=== PATIENT | male | born 1955 | race Caucasian/White ===

== ENCOUNTER 2022-02-22 19:20 | Inpatient (IN) | payer MEDICARE, BC ==
[~2022-02-22] VITALS: Ht 175.3 cm; Wt 76.9 kg
[~2022-02-22 19:20] MED LIST: heparin 10,000 units/1 ML INJ ONE; papaverine 30 mg/ml 2ml inj. ONE
[2022-02-22 20:00] VITALS: BP 109/52
[2022-02-22] MEDS ORDERED: diphenhydrAMINE 25mg capsule PO PRN (20:00)
[2022-02-22] MEDS ORDERED: MESSAGE TO PHARMACY IJ ONE (20:00)
[2022-02-22] MEDS ORDERED: HYDROcodone/acetaminophen 5mg/325mg tablet PO PRN (20:00)
[2022-02-22] MEDS ORDERED: ondansetron 4mg rapidly disintigrating tab PO PRN (20:00)
[2022-02-22] MEDS ORDERED: MESSAGE TO NURSING PO ONE ×4 (20:00)
[2022-02-22] MEDS ORDERED: heparin 10,000 units/1 ML INJ IV ONE (20:15)
[2022-02-22 20:44] LABS: BASOPHILS % (AUTO) 0.8 % (0-1); EOSINOPHILS # (AUTO) 0.1 X10'3 (0-0.9); EOSINOPHILS % (AUTO) 2.9 % (0-6); HEMATOCRIT 46.6 % (42.0-52.0); HEMOGLOBIN 15.8 g/dl (14.0-17.9); LYMPHOCYTES # (AUTO) 1.1 X10'3 (1.1-4.8); LYMPHOCYTES % (AUTO) 22.3 % (21-51); MEAN CORPUSCULAR HEMOGLOBIN 30.7 PG (27.0-31.0); MEAN CORPUSCULAR HGB CONC 33.9 g/dL (33.0-36.5); MEAN CORPUSCULAR VOLUME 90.4 FL (78-98); MEAN PLATELET VOLUME 9.2 FL (7.4-10.4); MONOCYTES # (AUTO) 0.5 X10'3 (0-0.9); MONOCYTES % (AUTO) 9.9 % (2-12); NEUTROPHILS # (AUTO) 3.1 X10'3 (1.8-7.7); NEUTROPHILS % (AUTO) 64.1 % (42-75); PLATELET COUNT 162 X10'3 (140-440); RED BLOOD COUNT 5.15 X10'6 (4.70-6.10); WHITE BLOOD COUNT 4.8 X10'3 (4.5-11.0)
[2022-02-22 20:54] LABS: APTT 56 SECONDS (22-32)
[2022-02-22 20:56] LABS: ALBUMIN 3.6 G/DL (3.4-5.0); ANION GAP 7 (8-16); BLOOD UREA NITROGEN 12 MG/DL (7-18); BUN/CREATININE RATIO 16.2 (5.4-32.0); CALCIUM 8.9 MG/DL (8.5-10.1); CHLORIDE 105 MMOL/L (99-107); CREATININE 0.74 MG/DL (0.60-1.10); GLUCOSE 192 MG/DL (70-104); POTASSIUM 4.1 MMOL/L (3.5-5.1); SODIUM 140 MMOL/L (135-145); TOTAL CARBON DIOXIDE 28.1 MMOL/L (24-32); eGFR > 90 ML/MIN
[2022-02-22] MEDS: sod chloride 0.9% 10ml flush syringe IV SCH (20:56)
[2022-02-22 21:00] VITALS: BP 103/72
[2022-02-22] MEDS: atorvastatin 10mg tablet PO SCH (21:10)
[2022-02-22] MEDS: metoprolol tartrate 12.5mg (1/2 tablet) PO SCH (21:11)
[2022-02-22] MEDS: heparin 25,000 UNIT/250ml bag 250 ML IV SCH (21:20)
[2022-02-22 22:00] VITALS: BP 106/77
--- NOTE | 2022-02-22 22:00 | NUR ---
Patient in room CICU 2016. I have received report from Amber MONSIVAIS ([facility]) and had the opportunity to ask questions and assume patient care. Patient arrived via EMS as direct admit. Patient walked to bed, placed on monitor. Dr Neri at bedside to assess patient.
[2022-02-22 23:00] VITALS: BP 114/73
[2022-02-23] VITALS (14 sets, daily range): BP systolic 89–110; BP diastolic 58–76
[2022-02-23 02:48] LABS: CLARITY,URINE CLEAR (Clear); COLOR,URINE YELLOW (Yellow); GLUCOSE, URINE NEGATIVE (Neg); KETONES,URINE NEGATIVE (Neg); LEUKOCYTE ESTERASE ,URINE NEGATIVE (Neg); NITRITES, URINE NEGATIVE (Neg); OCCULT BLOOD,URINE NEGATIVE (Neg); PH,URINE 6.5 (4.8-8.0); PROTEIN,URINE NEGATIVE (Neg); UROBILINOGEN,URINE 0.2 E.U/dL (0.2-1.0)
[2022-02-23 02:55] LABS: UA COLLECTION TYPE URINAL
[2022-02-23 03:39] LABS: BASOPHILS % (AUTO) 0.7 % (0-1); EOSINOPHILS # (AUTO) 0.1 X10'3 (0-0.9); EOSINOPHILS % (AUTO) 2.9 % (0-6); HEMATOCRIT 47.1 % (42.0-52.0); LYMPHOCYTES % (AUTO) 22.3 % (21-51); MEAN CORPUSCULAR HEMOGLOBIN 30.6 PG (27.0-31.0); MEAN CORPUSCULAR HGB CONC 33.9 g/dL (33.0-36.5); MEAN CORPUSCULAR VOLUME 90.3 FL (78-98); MEAN PLATELET VOLUME 9.3 FL (7.4-10.4); MONOCYTES # (AUTO) 0.5 X10'3 (0-0.9); MONOCYTES % (AUTO) 10.8 % (2-12); NEUTROPHILS # (AUTO) 2.7 X10'3 (1.8-7.7); NEUTROPHILS % (AUTO) 63.3 % (42-75); PLATELET COUNT 142 X10'3 (140-440); RED BLOOD COUNT 5.22 X10'6 (4.70-6.10); WHITE BLOOD COUNT 4.3 X10'3 (4.5-11.0)
[2022-02-23 03:56] LABS: ALBUMIN 3.5 G/DL (3.4-5.0); ANION GAP 7 (8-16); BLOOD UREA NITROGEN 11 MG/DL (7-18); BUN/CREATININE RATIO 16.2 (5.4-32.0); CALCIUM 8.8 MG/DL (8.5-10.1); CHLORIDE 107 MMOL/L (99-107); CREATININE 0.68 MG/DL (0.60-1.10); GLUCOSE 157 MG/DL (70-104); POTASSIUM 3.9 MMOL/L (3.5-5.1); SODIUM 140 MMOL/L (135-145); TOTAL CARBON DIOXIDE 25.7 MMOL/L (24-32); eGFR > 90 ML/MIN
--- NOTE | 2022-02-23 06:31 | NUR ---
Problems reprioritized. Patient report given, questions answered & plan of care reviewed with Zak MONSIVAIS.
[2022-02-23] MEDS: metoprolol tartrate 12.5mg (1/2 tablet) PO SCH ×2 (08:00→20:42)
[2022-02-23] MEDS: sod chloride 0.9% 10ml flush syringe IV SCH ×2 (08:36→20:43)
[2022-02-23] MEDS: aspirin 81mg, enteric-coated 1 TAB TABLET.DR PO SCH (08:37)
[2022-02-23 09:49] LABS: ABG BASE EXCESS -0.4 mmol/L (-2.0-2.0); ABG HCO3 22.4 mmol/L (22.0-26.0); ABG PCO2 (T) 32.4 mmHg (35.0-48.0); ABG PO2 (T) 69.2 mmHg (75.0-100.0); ALLEN'S TEST POSITIVE; FCOHb 0.2 % (0.0-3.9); FMetHb 0.1 % (0.0-1.5); FO2Hb 94.7 % (94-97); TOTAL HEMOGLOBIN 17.1 G/dl (14.0-18.0)
[2022-02-23] MEDS ORDERED: MESSAGE TO NURSING PO ONE ×2 (10:00→13:50)
--- NOTE | 2022-02-23 10:12 | NUR ---
PT TRANSFERRED TO PCU WITH CHART, BELONGINGS, TELE ON, IVS IN STABLE CONDITION. PLACED IN BED CHART TO BUN PANNER
[2022-02-23] MEDS ORDERED: NO HOME MEDS (13:37)
[2022-02-23] MEDS ORDERED: MESSAGE TO PHARMACY IJ ONE (13:50)
[2022-02-23] MEDS ORDERED: dextrose 50%-water 50ml dispensing syringe IV PRN (13:50)
[2022-02-23] MEDS ORDERED: Insulin Reg/NS 100units/100mL 100 ML IV SCH (13:50)
[2022-02-23] MEDS ORDERED: insulin glargine (Lantus) pen - multi-dose SQ PRN (13:50)
--- NOTE | 2022-02-23 15:37 | NUR ---
DM Consult "vegan, no sweets": Pt DX CAD pending CABG this admit w/ hx pre-diabetes A1C 7.0% per EMR. ENRIQUE d/w pharmacy who reports pt has no home meds reported. Pt hx vegan currently on vegan/heart healthy diet this admit w/ Glu 128mg/dl down from 192mg/dl previously per EMR. Pt/SO seen by RD at bedside; pt/SO report they want no: added oils unless extra-virgin olive oil, no peanut butter/roasted nuts, soy milk, canned fruit/juices, or margarine at this time. Pt/SO are understanding of hospital resources and have been bringing food in from home to further meet dietary preferences; RD contact information provided. Pt reports takes B12 supplementation weekly vs bi-weekly at home. Pt reports hx pre-diabetes though does not report mention of DM this admit. Unsure if pt aware of DM onset this admit; ENRIQUE d/w RN regarding pt notification of DM per physician discretion given A1C. DM ed deferred until pt aware of DM by physician. LBM 02/22. Will monitor for further nutrition intervention needs this admit. Rec: 1. continue vegan/heart healthy diet per MD/pt preferences; food from home by SO 2. honor pt vegan food preferences; see subjective 3. MVI/B12 supplementation per MD discretion given vegan hx 4. routine bowel care 5. weekly wts 6. DM ed once pt made aware of DM DX/A1C meaning by physician prior to discharge Addendum: 02/23/22 at [address] Amended: Links added.
[2022-02-23] MEDS: heparin 10,000 units/1 ML INJ IV PRN (16:47)
[2022-02-23] MEDS: heparin 25,000 UNIT/250ml bag 250 ML IV SCH (18:14)
[2022-02-23] MEDS ORDERED: metoprolol tartrate 12.5mg (1/2 tablet) PO SCH (20:00)
[2022-02-23] MEDS ORDERED: sod chloride 0.9% 10ml flush syringe IV SCH (20:00)
[2022-02-23] MEDS: atorvastatin 10mg tablet PO SCH (20:42)
[2022-02-23] MEDS: mupirocin 2% nasal ointment 1gm UD NS SCH (20:47)
[2022-02-24] VITALS (7 sets, daily range): BP systolic 90–106; BP diastolic 55–72
[2022-02-24] MEDS ORDERED: MALTODEXTRIN/FRUCTOSE 0.68 KCAL/ML LIQUID 296ML BOTTLE PO ONE (05:00)
[2022-02-24] MEDS ORDERED: vancomycin/NS 1 GM ADD-VANTAGE 250 ML IV ONE (05:30)
[2022-02-24] MEDS ORDERED: gabapentin 400mg capsule PO ONE (05:30)
[2022-02-24] MEDS: sod chloride 0.9% 10ml flush syringe IV SCH ×2 (08:00→20:43)
[2022-02-24] MEDS: metoprolol tartrate 12.5mg (1/2 tablet) PO SCH ×2 (08:00→20:00)
--- NOTE | 2022-02-24 08:03 | NUR ---
heparin drip is running in target therapeutic range.
[2022-02-24] MEDS: mupirocin 2% nasal ointment 1gm UD NS SCH ×2 (09:46→20:43)
[2022-02-24] MEDS: aspirin 81mg, enteric-coated 1 TAB TABLET.DR PO SCH (09:47)
[2022-02-24] MEDS: heparin 10,000 units/1 ML INJ IV PRN (10:38)
[2022-02-24 16:20] LABS: BASOPHILS % (AUTO) 0.7 % (0-1); EOSINOPHILS # (AUTO) 0.1 X10'3 (0-0.9); EOSINOPHILS % (AUTO) 2.5 % (0-6); HEMATOCRIT 48.5 % (42.0-52.0); HEMOGLOBIN 16.3 g/dl (14.0-17.9); LYMPHOCYTES # (AUTO) 0.8 X10'3 (1.1-4.8); LYMPHOCYTES % (AUTO) 18.1 % (21-51); MEAN CORPUSCULAR HEMOGLOBIN 30.6 PG (27.0-31.0); MEAN CORPUSCULAR HGB CONC 33.7 g/dL (33.0-36.5); MEAN CORPUSCULAR VOLUME 90.7 FL (78-98); MEAN PLATELET VOLUME 9.6 FL (7.4-10.4); MONOCYTES # (AUTO) 0.4 X10'3 (0-0.9); MONOCYTES % (AUTO) 8.6 % (2-12); NEUTROPHILS # (AUTO) 3.1 X10'3 (1.8-7.7); NEUTROPHILS % (AUTO) 70.1 % (42-75); PLATELET COUNT 160 X10'3 (140-440); RED BLOOD COUNT 5.35 X10'6 (4.70-6.10); RED CELL DISTRIBUTION WIDTH 12.8 % (11.5-14.5); WHITE BLOOD COUNT 4.4 X10'3 (4.5-11.0)
[2022-02-24 16:25] LABS: ALBUMIN 3.4 G/DL (3.4-5.0); ANION GAP 6 (8-16); BLOOD UREA NITROGEN 12 MG/DL (7-18); BUN/CREATININE RATIO 16.9 (5.4-32.0); CALCIUM 8.6 MG/DL (8.5-10.1); CHLORIDE 107 MMOL/L (99-107); CREATININE 0.71 MG/DL (0.60-1.10); GLUCOSE 188 MG/DL (70-104); POTASSIUM 4.2 MMOL/L (3.5-5.1); SODIUM 141 MMOL/L (135-145); TOTAL CARBON DIOXIDE 28.3 MMOL/L (24-32); eGFR > 90 ML/MIN
[2022-02-24] MEDS: heparin 25,000 UNIT/250ml bag 250 ML IV SCH (18:52)
[2022-02-24] MEDS: atorvastatin 10mg tablet PO SCH (20:44)
[2022-02-25] VITALS (22 sets, daily range): BP systolic 91–130; BP diastolic 44–65
[2022-02-25] MEDS ORDERED: gabapentin 400mg capsule PO ONE (04:40)
[2022-02-25 04:47] LABS: BASOPHILS % (AUTO) 0.5 % (0-1); EOSINOPHILS # (AUTO) 0.1 X10'3 (0-0.9); EOSINOPHILS % (AUTO) 2.7 % (0-6); HEMATOCRIT 48.9 % (42.0-52.0); HEMOGLOBIN 16.2 g/dl (14.0-17.9); LYMPHOCYTES # (AUTO) 0.9 X10'3 (1.1-4.8); LYMPHOCYTES % (AUTO) 19.8 % (21-51); MEAN CORPUSCULAR HEMOGLOBIN 29.7 PG (27.0-31.0); MEAN CORPUSCULAR HGB CONC 33.2 g/dL (33.0-36.5); MEAN CORPUSCULAR VOLUME 89.6 FL (78-98); MEAN PLATELET VOLUME 9.7 FL (7.4-10.4); MONOCYTES # (AUTO) 0.4 X10'3 (0-0.9); MONOCYTES % (AUTO) 9.1 % (2-12); NEUTROPHILS # (AUTO) 3.1 X10'3 (1.8-7.7); NEUTROPHILS % (AUTO) 67.9 % (42-75); PLATELET COUNT 155 X10'3 (140-440); RED BLOOD COUNT 5.46 X10'6 (4.70-6.10); WHITE BLOOD COUNT 4.6 X10'3 (4.5-11.0)
[2022-02-25 04:49] LABS: ALBUMIN 3.6 G/DL (3.4-5.0); ANION GAP 4 (8-16); BLOOD UREA NITROGEN 11 MG/DL (7-18); BUN/CREATININE RATIO 15.3 (5.4-32.0); CALCIUM 8.8 MG/DL (8.5-10.1); CHLORIDE 107 MMOL/L (99-107); CREATININE 0.72 MG/DL (0.60-1.10); GLUCOSE 164 MG/DL (70-104); POTASSIUM 4.2 MMOL/L (3.5-5.1); SODIUM 141 MMOL/L (135-145); TOTAL CARBON DIOXIDE 29.6 MMOL/L (24-32); eGFR > 90 ML/MIN
[2022-02-25] MEDS ORDERED: vancomycin/NS 1 GM ADD-VANTAGE 250 ML IV ONE (05:30)
[2022-02-25] MEDS ORDERED: ceFAZolin 1000mg inj ONE (06:05)
[2022-02-25] MEDS ORDERED: epiNEPHrine 1 mg/ml inj ONE (06:05)
[2022-02-25] MEDS ORDERED: papaverine 30 mg/ml 2ml inj. IA ONE (07:00)
[2022-02-25] MEDS ORDERED: heparin 10,000 units/1 ML INJ IR ONE (07:00)
[2022-02-25] MEDS ORDERED: SUFENTANIL CITRATE 50 MCG/ML 2ml ampule IV ONE (07:24)
[2022-02-25] MEDS ORDERED: MIDAZolam 1 MG/ML 5ML VIAL ONE (07:26)
[2022-02-25] MEDS ORDERED: propofol inj 20 ML IV ONE (07:28)
[2022-02-25] MEDS ORDERED: rocuronium 10mg/ml inj IV ONE (07:29)
[2022-02-25] MEDS ORDERED: ePHEDrine 50MG/ML INJ. ONE (07:31)
[2022-02-25] MEDS ORDERED: midazolam 1 mg/ML 2ml injection ONE (07:59)
[2022-02-25] MEDS: mupirocin 2% nasal ointment 1gm UD NS SCH (08:00)
[2022-02-25 08:22] LABS: ABG BASE EXCESS -1.8 mmol/L (-2.0-2.0); ABG HCO3 24.7 mmol/L (22.0-26.0); ABG OXYGEN SATURATION 99.7 % (94-97); ABG PO2 430.8 mmHg (75.0-100.0); CL (ABG) 101 mmol/L (98-110); FCOHb 0.5 % (0.0-3.9); FMetHb 0.3 % (0.0-1.5); FO2Hb 98.9 % (94-97); GLUCOSE (ABG) 193 mg/dl (70-105); IONIZED CA (ABG) 1.13 mmol/L (1.10-1.43); K (ABG) 3.9 mmol/L (3.5-5.0); TOTAL HEMOGLOBIN 16.1 G/dl (14.0-18.0)
[2022-02-25] MEDS ORDERED: Insulin Reg/NS 100units/100mL 100 ML IV SCH ×2 (08:31→11:25)
[2022-02-25] MEDS ORDERED: sodium bicarbonate (8.4%) 1 mEq/ml syringe ONE (09:00)
[2022-02-25] MEDS ORDERED: albumin (human) 25% 100 ML IV solution IV ONE (09:00)
[2022-02-25] MEDS ORDERED: phenylephrine 10mg/ml inj. ONE (09:00)
[2022-02-25] MEDS ORDERED: calcium chloride 100 MG/1 ML inj IV ONE (09:00)
[2022-02-25] MEDS ORDERED: heparin 10,000 units/1 ML INJ ONE (09:00)
[2022-02-25] MEDS ORDERED: aminocaproic acid 250 MG/1 ML inj. ONE (09:00)
[2022-02-25] MEDS ORDERED: methylPREDNISolone sod succ 1000mg vial ONE (09:00)
[2022-02-25 09:39] LABS: ABG HCO3 VENOUS 26.6 mmol/L (21.0-28.0); ABG PCO2 VENOUS 46.6 mmHg (41.0-54.0); ABG PO2 VENOUS 49.5 mmHg (25.0-35.0); CL (ABG) 99 mmol/L (98-110); FCOHb VENOUS 0.3 %; FHHb VENOUS 14.7 %; FMetHb VENOUS 0.3 % (0.0 - 0.5); FO2Hb VENOUS 84.7 %; GLUCOSE (ABG) 147 mg/dl (70-105); IONIZED CA (ABG) 0.92 mmol/L (1.10-1.43); K (ABG) 3.7 mmol/L (3.5-5.0); TOTAL HEMOGLOBIN 11.7 G/dl (14.0-18.0)
[2022-02-25 09:42] LABS: ABG BASE EXCESS 0.4 mmol/L (-2.0-2.0); ABG HCO3 25.4 mmol/L (22.0-26.0); ABG OXYGEN SATURATION 99.3 % (94-97); ABG PCO2 42.3 mmHg (35.0-48.0); ABG PO2 410.7 mmHg (75.0-100.0); CL (ABG) 101 mmol/L (98-110); FCOHb 0.3 % (0.0-3.9); FMetHb 0.3 % (0.0-1.5); FO2Hb 98.7 % (94-97); GLUCOSE (ABG) 151 mg/dl (70-105); IONIZED CA (ABG) 0.98 mmol/L (1.10-1.43); K (ABG) 3.4 mmol/L (3.5-5.0); TOTAL HEMOGLOBIN 11.9 G/dl (14.0-18.0)
[2022-02-25 10:13] LABS: ABG BASE EXCESS -0.8 mmol/L (-2.0-2.0); ABG HCO3 25.3 mmol/L (22.0-26.0); ABG OXYGEN SATURATION 99.4 % (94-97); ABG PCO2 47.7 mmHg (35.0-48.0); CL (ABG) 102 mmol/L (98-110); FCOHb 0.5 % (0.0-3.9); FMetHb 0.3 % (0.0-1.5); FO2Hb 98.6 % (94-97); GLUCOSE (ABG) 163 mg/dl (70-105); IONIZED CA (ABG) 1.06 mmol/L (1.10-1.43); K (ABG) 4.1 mmol/L (3.5-5.0); TOTAL HEMOGLOBIN 13.1 G/dl (14.0-18.0)
[2022-02-25 10:33] LABS: ABG BASE EXCESS 1.9 mmol/L (-2.0-2.0); ABG HCO3 28.1 mmol/L (22.0-26.0); ABG OXYGEN SATURATION 99.1 % (94-97); ABG PCO2 51.2 mmHg (35.0-48.0); ABG PO2 266.4 mmHg (75.0-100.0); CL (ABG) 102 mmol/L (98-110); FCOHb 0.3 % (0.0-3.9); FMetHb 0.3 % (0.0-1.5); FO2Hb 98.5 % (94-97); GLUCOSE (ABG) 161 mg/dl (70-105); IONIZED CA (ABG) 1.63 mmol/L (1.10-1.43); K (ABG) 3.7 mmol/L (3.5-5.0); TOTAL HEMOGLOBIN 12.7 G/dl (14.0-18.0)
[2022-02-25 11:00] LABS: ABG BASE EXCESS VENOUS 0.6 mmol/L (-2.0 - 2.0); ABG HCO3 VENOUS 27.7 mmol/L (21.0-28.0); ABG PCO2 VENOUS 54.7 mmHg (41.0-54.0); ABG PO2 VENOUS 49.5 mmHg (25.0-35.0); CL (ABG) 103 mmol/L (98-110); FCOHb VENOUS 0.9 %; FHHb VENOUS 16.8 %; FMetHb VENOUS 0.3 % (0.0 - 0.5); GLUCOSE (ABG) 164 mg/dl (70-105); IONIZED CA (ABG) 1.24 mmol/L (1.10-1.43); K (ABG) 3.8 mmol/L (3.5-5.0); TOTAL HEMOGLOBIN 13.4 G/dl (14.0-18.0)
[2022-02-25 11:04] LABS: ACTIVATED CLOTTING TIME 238 SEC (101-148)
[2022-02-25] MEDS ORDERED: dextrose 50%-water 50ml dispensing syringe IV PRN (11:25)
[2022-02-25] MEDS ORDERED: mineral oil 133ml enema RC PRN (11:25)
[2022-02-25] MEDS ORDERED: potassium CL 10mEq/100ml bag 100 ML IV PRN (11:25)
[2022-02-25] MEDS ORDERED: Neutra Phos packet PO PRN (11:25)
[2022-02-25] MEDS ORDERED: niCARDipine-NS 40mg/200ml IVPB 200 ML IV PRN (11:25)
[2022-02-25] MEDS ORDERED: ondansetron/PF 4mg/2ml inj IV PRN (11:25)
[2022-02-25] MEDS ORDERED: sodium chloride 0.45% 1,000 ML IV SCH (11:25)
[2022-02-25] MEDS ORDERED: magnesium citrate 296ml oral solution PO PRN (11:25)
[2022-02-25] MEDS ORDERED: HYDROcodone/acetaminophen 10/325mg tab PO PRN ×2 (11:25)
[2022-02-25] MEDS ORDERED: morphine 4 MG/ML inj SYRINge IV PRN (11:25)
[2022-02-25] MEDS ORDERED: sodium phosphate inj. 15 MMOL in dextrose 5%-water 250 ML IV PRN (11:25)
[2022-02-25] MEDS ORDERED: potassium Cl 20 mEq SR tablet PO PRN (11:25)
[2022-02-25] MEDS ORDERED: sodium phosphate inj. 30 MMOL in dextrose 5%-water 250 ML IV PRN (11:25)
[2022-02-25] MEDS ORDERED: metoclopramide 5 mg/ml inj IV PRN (11:25)
[2022-02-25] MEDS ORDERED: bisacodyl 10mg suppository rectal RC PRN (11:25)
[2022-02-25] MEDS ORDERED: acetaminophen 325mg tablet PO PRN ×2 (11:25)
[2022-02-25] MEDS ORDERED: nitroGLYCERIN-Tridil 50MG/D5W 250 ML IV PRN (11:25)
[2022-02-25] MEDS ORDERED: magnesium 2GM in 50ml NS 50 ML IV PRN (11:25)
[2022-02-25] MEDS ORDERED: magnesium hydroxide 30ml (MOM) UD suspension PO PRN (11:25)
--- NOTE | 2022-02-25 11:45 | NUR ---
Received to room , accompanied by MDs and surgical crew. Placed on ventilator, to time study engineer, arterial line and PA line pressure monitored. Chest tubes to suction at 20 cm. Zhang cath to gravity drainage. Dressings are dry and intact. See assessment record. All vasoactive drugs are infusing via central line.
--- NOTE | 2022-02-25 12:00 | NUR ---
per Dr. Neri keep nitro at 10 mcg/min over night
[2022-02-25 12:18] LABS: ABG BASE EXCESS -1.3 mmol/L (-2.0-2.0); ABG HCO3 22.1 mmol/L (22.0-26.0); ABG OXYGEN SATURATION 97.7 % (94-97); ABG PCO2 (T) 32.8 mmHg (35.0-48.0); ABG PO2 (T) 103.3 mmHg (75.0-100.0); FCOHb 0.3 % (0.0-3.9); FMetHb 0.3 % (0.0-1.5); FO2Hb 97.1 % (94-97); PATIENT TEMPERATURE 36.7; PEEP 5 cm H2O; RESPIRATORY RATE 18 b/min; TIDAL VOLUME 500 mL
[2022-02-25 12:40] LABS: APTT 27 SECONDS (22-32); BASOPHILS % (AUTO) 0.1 % (0-1); EOSINOPHILS % (AUTO) 0.2 % (0-6); HEMATOCRIT 42.6 % (42.0-52.0); HEMOGLOBIN 14.4 g/dl (14.0-17.9); LYMPHOCYTES # (AUTO) 0.5 X10'3 (1.1-4.8); LYMPHOCYTES % (AUTO) 4.6 % (21-51); MEAN CORPUSCULAR HEMOGLOBIN 30.2 PG (27.0-31.0); MEAN CORPUSCULAR HGB CONC 33.8 g/dL (33.0-36.5); MEAN CORPUSCULAR VOLUME 89.2 FL (78-98); MEAN PLATELET VOLUME 9.6 FL (7.4-10.4); MONOCYTES # (AUTO) 0.4 X10'3 (0-0.9); MONOCYTES % (AUTO) 3.5 % (2-12); NEUTROPHILS % (AUTO) 91.6 % (42-75); PLATELET COUNT 122 X10'3 (140-440); RED BLOOD COUNT 4.78 X10'6 (4.70-6.10); WHITE BLOOD COUNT 10.9 X10'3 (4.5-11.0)
[2022-02-25 12:43] LABS: ALANINE AMINOTRANSFERASE 20 U/L (12-78); ALBUMIN 3.1 G/DL (3.4-5.0); ALBUMIN/GLOBULIN RATIO 1.3 (1.1-1.5); ALKALINE PHOSPHATASE 108 IU/L (46-116); ANION GAP 10 (8-16); ASPARTATE AMINO TRANSFERASE 32 U/L (10-37); BILIRUBIN,TOTAL 0.6 MG/DL (0.1-1.0); BLOOD UREA NITROGEN 9 MG/DL (7-18); BUN/CREATININE RATIO 11.7 (5.4-32.0); CALCIUM 8.3 MG/DL (8.5-10.1); CHLORIDE 108 MMOL/L (99-107); CREATININE 0.77 MG/DL (0.60-1.10); GLUCOSE 137 MG/DL (70-104); MAGNESIUM 1.7 MG/DL (1.5-2.4); PHOSPHORUS 2.1 MG/DL (2.3-4.5); POTASSIUM 3.3 MMOL/L (3.5-5.1); SODIUM 143 MMOL/L (135-145); TOTAL CARBON DIOXIDE 25.3 MMOL/L (24-32); TOTAL PROTEIN 5.5 G/DL (6.4-8.2); eGFR > 90 ML/MIN
[2022-02-25] MEDS: gabapentin 300mg capsule PO SCH ×2 (13:11→21:03)
[2022-02-25] MEDS: magnesium 4gm in 100ml NS 100 ML IV PRN (13:17)
[2022-02-25] MEDS: potassium Cl 20mEq/100mL bag 100 ML IV PRN ×6 (13:19→20:13)
[2022-02-25] MEDS: albumin (Human) 5% 250ml 250 ML IV PRN ×2 (13:28→13:43)
[2022-02-25] MEDS: morphine 2 MG/ML inj. syringe IV PRN ×3 (13:30→23:03)
[2022-02-25] MEDS: ceFAZolin/D5W- 1GM premix 50 ML IV SCH (15:41)
[2022-02-25 15:58] LABS: ABG BASE EXCESS -2.9 mmol/L (-2.0-2.0); ABG HCO3 20.5 mmol/L (22.0-26.0); ABG OXYGEN SATURATION 96.2 % (94-97); ABG PCO2 (T) 31.3 mmHg (35.0-48.0); ABG PO2 (T) 81.2 mmHg (75.0-100.0); FCOHb 0.1 % (0.0-3.9); FMetHb 0.1 % (0.0-1.5); PATIENT TEMPERATURE 36.5; PEEP 5 cm H2O; TOTAL HEMOGLOBIN 13.3 G/dl (14.0-18.0)
--- NOTE | 2022-02-25 16:12 | NUR ---
Ph 7.42 co2 32.0 pos 83.9 hco3 20.5, niff -20, rsbi 16 vc 1081 positive cuff leak patient meets criteria for extubation, patient extubated 1605, placed on 3 L nasal canula
[2022-02-25] MEDS ORDERED: amiodarone/D5 360MG/200ML BAG 200 ML IV SCH ×2 (17:05→20:21)
[2022-02-25 18:04] LABS: HEMOGLOBIN 12.4 g/dl (14.0-17.9)
[2022-02-25 18:05] LABS: BASOPHILS % (AUTO) 0.3 % (0-1); EOSINOPHILS % (AUTO) 0.1 % (0-6); HEMATOCRIT 37.2 % (42.0-52.0); LYMPHOCYTES # (AUTO) 0.3 X10'3 (1.1-4.8); LYMPHOCYTES % (AUTO) 2.2 % (21-51); MEAN CORPUSCULAR HEMOGLOBIN 29.7 PG (27.0-31.0); MEAN CORPUSCULAR HGB CONC 33.2 g/dL (33.0-36.5); MEAN CORPUSCULAR VOLUME 89.5 FL (78-98); MEAN PLATELET VOLUME 9.8 FL (7.4-10.4); MONOCYTES # (AUTO) 0.4 X10'3 (0-0.9); MONOCYTES % (AUTO) 3.6 % (2-12); NEUTROPHILS # (AUTO) 11.8 X10'3 (1.8-7.7); NEUTROPHILS % (AUTO) 93.8 % (42-75); PLATELET COUNT 121 X10'3 (140-440); RED BLOOD COUNT 4.16 X10'6 (4.70-6.10); WHITE BLOOD COUNT 12.6 X10'3 (4.5-11.0)
[2022-02-25 18:08] LABS: ALBUMIN 3.2 G/DL (3.4-5.0); ANION GAP 11 (8-16); BLOOD UREA NITROGEN 9 MG/DL (7-18); BUN/CREATININE RATIO 11.4 (5.4-32.0); CALCIUM 7.6 MG/DL (8.5-10.1); CHLORIDE 109 MMOL/L (99-107); CREATININE 0.79 MG/DL (0.60-1.10); GLUCOSE 140 MG/DL (70-104); MAGNESIUM 2.6 MG/DL (1.5-2.4); PHOSPHORUS 3.2 MG/DL (2.3-4.5); SODIUM 143 MMOL/L (135-145); TOTAL CARBON DIOXIDE 23.4 MMOL/L (24-32); eGFR > 90 ML/MIN
--- NOTE | 2022-02-25 18:23 | NUR ---
Problems reprioritized. Patient report given, questions answered & plan of care reviewed with SHAY MONSIVAIS.
[2022-02-25] MEDS ORDERED: mupirocin 2% ointment 22GM NS SCH (20:00)
[2022-02-25] MEDS: sennosides/docusate sodium tablet PO SCH (20:02)
[2022-02-25] MEDS: vancomycin/NS 1 GM ADD-VANTAGE 250 ML IV SCH (20:02)
[2022-02-25] MEDS: atorvastatin 10mg tablet PO SCH (21:03)
[2022-02-26] VITALS (23 sets, daily range): BP systolic 82–128; BP diastolic 45–57
[2022-02-26] MEDS: ceFAZolin/D5W- 1GM premix 50 ML IV SCH ×3 (00:16→15:36)
[2022-02-26 03:01] LABS: BASOPHILS % (AUTO) 0 % (0-1); EOSINOPHILS % (AUTO) 0 % (0-6); HEMATOCRIT 36.6 % (42.0-52.0); HEMOGLOBIN 12.1 g/dl (14.0-17.9); LYMPHOCYTES # (AUTO) 0.4 X10'3 (1.1-4.8); LYMPHOCYTES % (AUTO) 2.8 % (21-51); MEAN CORPUSCULAR HEMOGLOBIN 29.9 PG (27.0-31.0); MEAN CORPUSCULAR HGB CONC 33.2 g/dL (33.0-36.5); MEAN CORPUSCULAR VOLUME 90.2 FL (78-98); MEAN PLATELET VOLUME 10.2 FL (7.4-10.4); MONOCYTES # (AUTO) 0.7 X10'3 (0-0.9); MONOCYTES % (AUTO) 5.7 % (2-12); NEUTROPHILS # (AUTO) 11.5 X10'3 (1.8-7.7); NEUTROPHILS % (AUTO) 91.5 % (42-75); PLATELET COUNT 110 X10'3 (140-440); RED BLOOD COUNT 4.06 X10'6 (4.70-6.10); RED CELL DISTRIBUTION WIDTH 12.9 % (11.5-14.5); WHITE BLOOD COUNT 12.6 X10'3 (4.5-11.0)
[2022-02-26 03:20] LABS: ALANINE AMINOTRANSFERASE 9 U/L (12-78); ALBUMIN 2.9 G/DL (3.4-5.0); ALBUMIN/GLOBULIN RATIO 1.6 (1.1-1.5); ALKALINE PHOSPHATASE 71 IU/L (46-116); ANION GAP 7 (8-16); ASPARTATE AMINO TRANSFERASE 28 U/L (10-37); BILIRUBIN,TOTAL 0.3 MG/DL (0.1-1.0); BLOOD UREA NITROGEN 8 MG/DL (7-18); BUN/CREATININE RATIO 14.8 (5.4-32.0); CALCIUM 7.4 MG/DL (8.5-10.1); CHLORIDE 106 MMOL/L (99-107); CREATININE 0.54 MG/DL (0.60-1.10); GLUCOSE 127 MG/DL (70-104); MAGNESIUM 1.9 MG/DL (1.5-2.4); PHOSPHORUS 3.2 MG/DL (2.3-4.5); POTASSIUM 3.9 MMOL/L (3.5-5.1); SODIUM 137 MMOL/L (135-145); TOTAL CARBON DIOXIDE 23.7 MMOL/L (24-32); TOTAL PROTEIN 4.7 G/DL (6.4-8.2); eGFR > 90 ML/MIN
[2022-02-26] MEDS: potassium Cl 20mEq/100mL bag 100 ML IV PRN ×2 (04:49→05:55)
[2022-02-26] MEDS: sennosides/docusate sodium tablet PO SCH ×2 (08:00→20:36)
[2022-02-26] MEDS: metoprolol tartrate 12.5mg (1/2 tablet) PO SCH ×2 (08:00→20:00)
[2022-02-26] MEDS ORDERED: aspirin 325mg tablet, delayed-release (Ecotrin) PO SCH (08:00)
[2022-02-26] MEDS ORDERED: albumin (Human) 5% 250ml 250 ML IV ONE (08:05)
[2022-02-26] MEDS: gabapentin 300mg capsule PO SCH ×3 (09:36→21:08)
[2022-02-26] MEDS: amiodarone 200mg tablet PO SCH ×2 (09:37→20:36)
[2022-02-26] MEDS: vancomycin/NS 1 GM ADD-VANTAGE 250 ML IV SCH ×2 (09:52→20:36)
[2022-02-26] MEDS: ketorolac tromethamine 15mg/ml inj. IV SCH ×3 (09:52→20:36)
[2022-02-26] MEDS: magnesium 4gm in 100ml NS 100 ML IV PRN (09:53)
--- NOTE | 2022-02-26 10:25 | NUR ---
CABG Consult: Pt s/p CABGx4 post-op day 1 per EMR; would benefit from high protein diet ed post-op. Pt advanced to vegan/NCS diet PO pending first solid meals post-op. RD d/w RN regarding pt A1C 7.0% and pt/SO not aware of DM DX only pre-DM at this time; would benefit from MD notification prior to discharge. Pt PO 100% initial meals 02/23-02/24 pre-op though also food from home by SO given vegan preferences. LBM 02/23. Will monitor for PO trends and further nutrition intervention needs post-op. Rec: 1. advance to vegan/heart healthy diet per MD/pt preferences; food from home by SO 2. honor pt vegan food preferences; see prior RD note 3. MVI/B12 supplementation per MD discretion given vegan hx 4. routine bowel care 5. weekly wts 6. high protein diet ed once appropriate post-op prior to discharge 7. DM ed once pt made aware of DM DX/A1C meaning by physician prior to discharge Addendum: 02/26/22 at [address] Amended: Links added.
[2022-02-26] MEDS: insulin Lispro (HumaLOG) vial - multi-dose SQ SCH ×2 (15:40→20:56)
[2022-02-26] MEDS: insulin glargine (Lantus) pen - multi-dose SQ PRN (20:57)
[2022-02-26] MEDS: atorvastatin 10mg tablet PO SCH (21:07)
[2022-02-27] VITALS (19 sets, daily range): BP systolic 93–104; BP diastolic 42–64
[2022-02-27] MEDS: ceFAZolin/D5W- 1GM premix 50 ML IV SCH (00:44)
[2022-02-27] MEDS: ketorolac tromethamine 15mg/ml inj. IV SCH (02:29)
[2022-02-27 02:58] LABS: BASOPHILS % (AUTO) 0.1 % (0-1); EOSINOPHILS % (AUTO) 0 % (0-6); HEMATOCRIT 36.4 % (42.0-52.0); LYMPHOCYTES # (AUTO) 0.3 X10'3 (1.1-4.8); LYMPHOCYTES % (AUTO) 1.9 % (21-51); MEAN CORPUSCULAR HEMOGLOBIN 29.8 PG (27.0-31.0); MEAN CORPUSCULAR VOLUME 90.4 FL (78-98); MONOCYTES # (AUTO) 0.7 X10'3 (0-0.9); MONOCYTES % (AUTO) 4.7 % (2-12); NEUTROPHILS # (AUTO) 14.1 X10'3 (1.8-7.7); NEUTROPHILS % (AUTO) 93.3 % (42-75); PLATELET COUNT 111 X10'3 (140-440); RED BLOOD COUNT 4.03 X10'6 (4.70-6.10); RED CELL DISTRIBUTION WIDTH 13.4 % (11.5-14.5); WHITE BLOOD COUNT 15.1 X10'3 (4.5-11.0)
[2022-02-27 03:07] LABS: ALBUMIN 3.1 G/DL (3.4-5.0); ANION GAP 5 (8-16); BLOOD UREA NITROGEN 14 MG/DL (7-18); BUN/CREATININE RATIO 21.9 (5.4-32.0); CALCIUM 8.2 MG/DL (8.5-10.1); CHLORIDE 106 MMOL/L (99-107); CREATININE 0.64 MG/DL (0.60-1.10); GLUCOSE 223 MG/DL (70-104); MAGNESIUM 2.4 MG/DL (1.5-2.4); PHOSPHORUS 2.7 MG/DL (2.3-4.5); POTASSIUM 4.9 MMOL/L (3.5-5.1); SODIUM 139 MMOL/L (135-145); TOTAL CARBON DIOXIDE 28.3 MMOL/L (24-32); eGFR > 90 ML/MIN
[2022-02-27 04:24] LABS: LARGE PLATELETS FEW
[2022-02-27 04:25] LABS: PLATELET ESTIMATE DECREASED
--- NOTE | 2022-02-27 06:00 | NUR ---
Patient in room CICU 2008. I have received report from Tamiko MONSIVAIS and had the opportunity to ask questions and assume patient care.
[2022-02-27 06:34] LABS: ACT @ 1.70 U 249 SEC (193-297); ACT @ 2.84 U 337 SEC (260-420); BASELINE ACT 141 SEC (101-148); PATIENT WEIGHT 73.0k KG
[2022-02-27] MEDS: metoprolol tartrate 12.5mg (1/2 tablet) PO SCH ×2 (08:00→20:00)
[2022-02-27] MEDS: amiodarone 200mg tablet PO SCH ×2 (08:37→19:21)
[2022-02-27] MEDS: sennosides/docusate sodium tablet PO SCH ×2 (08:37→19:20)
[2022-02-27] MEDS: gabapentin 300mg capsule PO SCH (08:37)
[2022-02-27] MEDS: pantoprazole 40mg Tablet.DR PO SCH (08:38)
[2022-02-27] MEDS ORDERED: furosemide 40mg/4ml inj IV ONE (08:45)
[2022-02-27] MEDS: insulin Lispro (HumaLOG) vial - multi-dose SQ SCH ×3 (09:37→21:14)
--- NOTE | 2022-02-27 11:05 | NUR ---
CABG Consult: Pt/SO seen by ENRIQUE for written/verbal high protein diet ed post-op. ENRIQUE reviewed high protein options/supplements for vegan diet and encouraged pt/SO to contact dietitian's office if further questions/concerns. Pt not aware of DM DX A1C 7.0% at this time; would benefit from physician notification prior to discharge. Addendum: 02/27/22 at [address] Amended: Links added.
--- NOTE | 2022-02-27 15:03 | NUR ---
Called report to Edilma MONSIVAIS. Patient going to room 3021. at bedside.
[2022-02-27] MEDS ORDERED: ondansetron 4mg rapidly disintigrating tab PO PRN (15:30)
--- NOTE | 2022-02-27 16:02 | NUR ---
Pt transferred to room 3021 on tele monitor with RN and . All belongings with pt, report given to Alisa MONSIVAIS.
--- NOTE | 2022-02-27 18:13 | NUR ---
Problems reprioritized. Patient report given, questions answered & plan of care reviewed with Ashley RN. Patient is resting in room. is at bedside. Patient is in no acute distress.
[2022-02-27] MEDS: magnesium Cl slow-release 64mg tablet PO SCH (19:20)
[2022-02-27] MEDS: potassium Cl 20 mEq SR tablet PO SCH (19:21)
[2022-02-27] MEDS: atorvastatin 10mg tablet PO SCH (20:34)
[2022-02-27] MEDS: insulin glargine (Lantus) pen - multi-dose SQ PRN (21:15)
--- NOTE | 2022-02-27 21:15 | NUR ---
Pt had late dinner. Administered Nutritional insulin coverage and lantus before bed. Per RN judgement.
[2022-02-28 02:00] VITALS: BP 95/58
--- NOTE | 2022-02-28 02:36 | NUR ---
Paged Dr. Cuenca: Raheem Lezama room 3021 3 days post CABG has not been able to sleep. Would you consider sleeping aid for this pt? Thank you, Ashley Cuenca responded requesting I reach out to energy director.
[2022-02-28 06:08] LABS: ANION GAP 6 (8-16); BLOOD UREA NITROGEN 14 MG/DL (7-18); BUN/CREATININE RATIO 20.9 (5.4-32.0); CALCIUM 8.3 MG/DL (8.5-10.1); CHLORIDE 108 MMOL/L (99-107); CREATININE 0.67 MG/DL (0.60-1.10); GLUCOSE 125 MG/DL (70-104); POTASSIUM 3.9 MMOL/L (3.5-5.1); SODIUM 143 MMOL/L (135-145); TOTAL CARBON DIOXIDE 29.1 MMOL/L (24-32); eGFR > 90 ML/MIN
[2022-02-28 06:09] LABS: BASOPHILS % (AUTO) 0.1 % (0-1); EOSINOPHILS % (AUTO) 0 % (0-6); HEMATOCRIT 36.6 % (42.0-52.0); HEMOGLOBIN 12.2 g/dl (14.0-17.9); LYMPHOCYTES # (AUTO) 0.6 X10'3 (1.1-4.8); LYMPHOCYTES % (AUTO) 4.7 % (21-51); MEAN CORPUSCULAR HGB CONC 33.3 g/dL (33.0-36.5); MEAN PLATELET VOLUME 10.5 FL (7.4-10.4); MONOCYTES % (AUTO) 8.3 % (2-12); NEUTROPHILS # (AUTO) 10.3 X10'3 (1.8-7.7); NEUTROPHILS % (AUTO) 86.9 % (42-75); PLATELET COUNT 127 X10'3 (140-440); RED BLOOD COUNT 4.07 X10'6 (4.70-6.10); WHITE BLOOD COUNT 11.9 X10'3 (4.5-11.0)
--- NOTE | 2022-02-28 06:31 | NUR ---
Report given to Carolyn MONSIVAIS. Pt resting in bed. all needs met at this time.
[2022-02-28 07:00] VITALS: BP 93/58
[2022-02-28] MEDS ORDERED: clopidogrel 75mg tablet PO SCH (08:00)
[2022-02-28] MEDS ORDERED: aspirin 81mg, enteric-coated 1 TAB TABLET.DR PO SCH (08:00)
[2022-02-28] MEDS: metoprolol tartrate 12.5mg (1/2 tablet) PO SCH (08:00)
[2022-02-28] MEDS: sennosides/docusate sodium tablet PO SCH (08:50)
[2022-02-28] MEDS: pantoprazole 40mg Tablet.DR PO SCH (08:50)
[2022-02-28] MEDS: potassium Cl 20 mEq SR tablet PO SCH (08:50)
[2022-02-28] MEDS: amiodarone 200mg tablet PO SCH (08:50)
[2022-02-28] MEDS: magnesium Cl slow-release 64mg tablet PO SCH (08:51)
[2022-02-28] MEDS ORDERED: LOP12.5T PO (08:52)
[2022-02-28] MEDS ORDERED: CLOP75TA34 PO (08:52)
[2022-02-28] MEDS ORDERED: HYDR-3972 PO (08:52)
[2022-02-28] MEDS ORDERED: ATOR10TA PO (08:52)
[2022-02-28] MEDS ORDERED: AMIO200T67 PO ×2 (08:52)
[2022-02-28] MEDS ORDERED: ASPI-1071 PO (08:52)
[2022-02-28 11:00] VITALS: BP 102/60
--- NOTE | 2022-02-28 12:15 | NUR ---
patient and requesting education by shop firer/fireman for new onset diabetes
--- NOTE | 2022-02-28 12:17 | NUR ---
patient ate food brought in for breakfast and did not have the carb count . Pt did not eat any of breakfast from hospital. Family educated about not bringing in food in able to effectively treat blood sugar.
[2022-02-28] MEDS: insulin Lispro (HumaLOG) vial - multi-dose SQ SCH (13:12)
--- NOTE | 2022-02-28 13:40 | NUR ---
f/u 02/28: Provided pt and his w/ written and verbal DM ed w/ RD contact info. All questions answered to patient's satisfaction. Addendum: 02/28/22 at [address] Amended: Links added.
--- NOTE | 2022-02-28 14:38 | NUR ---
Patient was DC to home and picked up by his . PIV was removed with cannula intact. RX were escripted to the pharmacy. All questions were answered to the patient and 's satisfaction. DC instructions and warning s/s were reviewed with patient and and both verbalized understanding. Pt took all belongings with him. Diabetes education was provided by tab machine operator and myself. Written education materials were included.
== END 2022-02-28 14:08 | disposition home or self-care (01) | DRG 236 ==
LOC: CICU 2S 19:41 → PCU 3S 02-23 10:24 → CICU 2S 02-25 08:29 → PCU 3S 02-27 15:45
PROVIDERS: ADMIT Thoracic Surgery (Cardiothoracic Vascular Surgery); ATTEND Thoracic Surgery (Cardiothoracic Vascular Surgery)
PROC: 02100Z8 Bypass Coronary Artery, One Artery from Right Internal Mammary, Open Approach (ICD-10-PCS; 2022-02-25)
PROC: 021109W Bypass Coronary Artery, Two Arteries from Aorta with Autologous Venous Tissue, Open Approach (ICD-10-PCS; 2022-02-25)
PROC: 06BP4ZZ Excision of Right Saphenous Vein, Percutaneous Endoscopic Approach (ICD-10-PCS; 2022-02-25)
PROC: 5A1221Z Performance of Cardiac Output, Continuous (ICD-10-PCS; 2022-02-25)
PROC: B24BZZ4 Ultrasonography of Heart with Aorta, Transesophageal (ICD-10-PCS; 2022-02-25)
PROC: 02100Z9 Bypass Coronary Artery, One Artery from Left Internal Mammary, Open Approach (ICD-10-PCS; principal; 2022-02-25 07:34)
DX: I21.4 Non-ST elevation (NSTEMI) myocardial infarction (principal); I97.791 Other intraoperative cardiac functional disturbances during other surgery; I25.10 Atherosclerotic heart disease of native coronary artery without angina pectoris; Z20.822 Contact with and (suspected) exposure to COVID-19; I48.91 Unspecified atrial fibrillation
CPT/HCPCS: 36415; 36600; 71045; 71046; 80048; 80053; 81003; 82330; 82435; 82803; 82947; 82948; 83036; 83735; 84100; 84132; 84295; 85008; 85018; 85025; 85347; 85384; 85610; 85730; 86885; 86900; 86901; 86920; 87081; 93005; 93312; 93325; 93880; 93971; 94002; 94010; 94760; 97110; 97116; 97161; 97530; A4618; A6258; A6449; A7000; C1751; G0378; J0171; J0282; J0690; J1644; J1815; J1885; J2150; J2250; J2270; J2370; J2440; J2704; J2930; J3370; J3475; J3480; J3490; J7030; J7040; J7050; J7120; P9045; P9047